=== PATIENT | male | born 1955 | race Caucasian/White ===

== ENCOUNTER 2022-03-14 00:52 | Inpatient (IN) ==
[2022-03-14 02:53] LABS: Basophils % 0.3 %; Eosinophils % 0.1 %; Mean Corpuscular Hemoglobin 28.7 pg (28.0-33.3); Red Cell Distribution Width 14.6 % (11.5-14.5)
[2022-03-14 02:55] LABS: Basophils # 0.1 K/mcL (0.0-0.2); Hematocrit 15.8 % (37.5-50.1); Immature Granulocytes % 1.9 % (0-4); Lymphocytes # 1.8 K/mcL (0.6-4.6); Lymphocytes % 10.9 %; Mean Corpuscular HGB Conc 32.3 g/dL (31.6-35.5); Mean Corpuscular Volume 88.8 fL (83.0-100.0); Mean Platelet Volume 9.2 fL (9.4-12.4); Monocytes # 0.6 K/mcL (0.0-1.3); Monocytes % 3.7 %; Nucleated Red Blood Cells 0.5 /100 WBC (0); Platelet Count 563 K/mcL (140-400); Red Blood Count 1.78 M/mcL (4.19-5.50); Segmented Neutrophils % 83.1 %; White Blood Count 16.3 K/mcL (4.3-11.1)
[2022-03-14 02:59] LABS: Neutrophils # 13.6 K/mcL (1.6-8.9)
[2022-03-14 03:01] LABS: Hemoglobin 5.1 g/dL (12.9-16.9)
[2022-03-14 03:11] LABS: Alanine Aminotransferase 76 Units/L (7-52); Albumin 2.6 g/dL (3.5-5.7); Alkaline Phosphatase 80 Units/L (34-104); Aspartate Amino Transferase 30 Units/L (13-39); BUN/Creatinine Ratio 44 (6-26); Bilirubin,Total 0.6 mg/dL (0.3-1.0); Blood Urea Nitrogen 30 mg/dL (8-23); Calcium 8.4 mg/dL (8.6-10.3); Carbon Dioxide 21 mEq/L (23-29); Chloride 95 mEq/L (98-107); Creatine Kinase 67 Units/L (30-223); Globulin 2.7 g/dL (2.4-3.5); Glucose 430 mg/dL (70-105); Magnesium 2.3 mg/dL (1.6-2.6); Osmolality,Calculated 287 (280-300); Potassium 4.8 mEq/L (3.5-5.1); Sodium 126 mEq/L (136-145); Total Protein 5.3 g/dL (6.4-8.9); Troponin I 0.11 ng/mL (< 0.04)
[2022-03-14 03:13] LABS: Thyroid Stimulating Hormone 1.006 mcIU/mL (0.340-5.600)
[2022-03-14] MEDS ORDERED: Iopamidol - 370 500 ML MLS IVP ONE (03:22)
[2022-03-14 03:36] LABS: Hypochromasia Present (Not Present)
[2022-03-14 03:59] LABS: Immature Reticulocyte % 52.4 % (11.0-38.0); Retculocyte # 0.08 M/mcL (0.05-0.10); Reticulocyte % 4.7 % (1.6-2.8)
[2022-03-14 04:11] LABS: % Iron Saturation 36 % (20-55); Iron 66 mcg/dL (65-175); Transferrin 130 mg/dL (203-362)
[2022-03-14] MEDS ORDERED: Insulin Human Regular 10 UNIT in 0.9 % Sodium Chloride 10 ML IV ONE (04:25)
[2022-03-14 04:28] LABS: Ferritin 609 ng/mL (20-250)
[2022-03-14] MEDS ORDERED: 0.9 % Sodium Chloride 500 ML ONE (05:08)
[2022-03-14] MEDS ORDERED: Naloxone 0.4 MG/ML INJ IVP PRN (08:00)
[2022-03-14] MEDS ORDERED: Ondansetron 4 MG/2 ML VIAL IVP PRN (08:00)
[2022-03-14] MEDS ORDERED: Acetaminophen 325 MG TABLET PO PRN (08:00)
[2022-03-14] MEDS ORDERED: D5% in Water 1,000 ML IVC PRN (08:08)
[2022-03-14] MEDS ORDERED: Dextrose Gel 15 GM/37.5 ML TUBE PO PRN ×2 (08:08)
[2022-03-14] MEDS ORDERED: *HR* Dextrose 50 % in Water (Syg) 50 ML SYRINGE IVP PRN (08:08)
[2022-03-14 11:45] LABS: Hematocrit 25.1 % (37.5-50.1); Hemoglobin 8.4 g/dL (12.9-16.9)
[2022-03-14] MEDS: Pantoprazole 40 MG VIAL IVP SCH ×2 (13:23→20:37)
[2022-03-14] MEDS: Insulin LISPRO 300 UNITS/3 ML VIAL SUBQ SCH ×3 (13:23→20:53)
[2022-03-14] MEDS: carvediloL 6.25 MG TABLET PO SCH (20:38)
[2022-03-14] MEDS: *HR* HYDROcodone/Acet 5/325 mg TABLET PO PRN (20:47)
[2022-03-15 03:44] LABS: Hematocrit 22.4 % (37.5-50.1); Hemoglobin 7.4 g/dL (12.9-16.9); Mean Corpuscular Hemoglobin 29.4 pg (28.0-33.3); Mean Corpuscular Volume 88.9 fL (83.0-100.0); Mean Platelet Volume 8.8 fL (9.4-12.4); Platelet Count 431 K/mcL (140-400); Red Blood Count 2.52 M/mcL (4.19-5.50); Red Cell Distribution Width 14.8 % (11.5-14.5); White Blood Count 15.7 K/mcL (4.3-11.1)
[2022-03-15 03:59] LABS: BUN/Creatinine Ratio 29 (6-26); Blood Urea Nitrogen 17 mg/dL (8-23); Calcium 8.5 mg/dL (8.6-10.3); Carbon Dioxide 24 mEq/L (23-29); Chloride 98 mEq/L (98-107); Glucose 213 mg/dL (70-105); Lactate Dehydrogenase 177 Units/L (140-271); Magnesium 2.1 mg/dL (1.6-2.6); Osmolality,Calculated 276 (280-300); Potassium 3.9 mEq/L (3.5-5.1); Sodium 129 mEq/L (136-145)
[2022-03-15 04:07] LABS: Estimated Average Glucose 243 mg/dl; Hemoglobin A1C 10.1 %
[2022-03-15] MEDS: Pantoprazole 40 MG VIAL IVP SCH (05:29)
[2022-03-15] MEDS: Aspirin Enteric Coated 81 MG Tablet PO SCH (12:55)
[2022-03-15] MEDS: carvediloL 6.25 MG TABLET PO SCH ×2 (12:56→16:37)
[2022-03-15] MEDS ORDERED: Lidocaine -MPF 2% 2 ML VIAL ONE (13:13)
[2022-03-15] MEDS ORDERED: Acetaminophen 325 MG TABLET PO PRN (15:51)
[2022-03-15] MEDS: Insulin LISPRO 300 UNITS/3 ML VIAL SUBQ SCH ×4 (16:27→21:00)
[2022-03-15] MEDS: Fluconazole 100 MG TABLET PO SCH (16:38)
[2022-03-15 16:46] LABS: Hematocrit 27.8 % (37.5-50.1); Hemoglobin 8.9 g/dL (12.9-16.9)
[2022-03-15] MEDS: *HR* HYDROcodone/Acet 5/325 mg TABLET PO PRN (20:59)
[2022-03-15] MEDS: Insulin DETEMIR 100 UNIT/ML X5UNITS SUBQ SCH (21:00)
[2022-03-16] MEDS: carvediloL 6.25 MG TABLET PO SCH ×2 (08:54→18:43)
[2022-03-16] MEDS: Fluconazole 100 MG TABLET PO SCH (08:54)
[2022-03-16] MEDS: Aspirin Enteric Coated 81 MG Tablet PO SCH (08:54)
[2022-03-16] MEDS: Insulin LISPRO 300 UNITS/3 ML VIAL SUBQ SCH ×4 (08:54→20:56)
[2022-03-16] MEDS: *HR* HYDROcodone/Acet 5/325 mg TABLET PO PRN ×2 (09:03→20:55)
[2022-03-16 10:32] LABS: Basophils # 0.1 K/mcL (0.0-0.2); Basophils % 0.4 %; Eosinophils # 0.1 K/mcL (0.0-0.6); Eosinophils % 0.6 %; Immature Granulocytes % 1.5 % (0-4); Lymphocytes # 1.5 K/mcL (0.6-4.6); Lymphocytes % 12.1 %; Mean Corpuscular HGB Conc 32.7 g/dL (31.6-35.5); Mean Corpuscular Volume 91.7 fL (83.0-100.0); Mean Platelet Volume 8.8 fL (9.4-12.4); Monocytes # 0.6 K/mcL (0.0-1.3); Monocytes % 4.8 %; Neutrophils # 9.8 K/mcL (1.6-8.9); Nucleated Red Blood Cells 0.2 /100 WBC (0); Platelet Count 420 K/mcL (140-400); Red Cell Distribution Width 16.6 % (11.5-14.5); Segmented Neutrophils % 80.6 %; White Blood Count 12.2 K/mcL (4.3-11.1)
[2022-03-16 10:33] LABS: Hemoglobin 7.2 g/dL (12.9-16.9)
[2022-03-16 10:54] LABS: BUN/Creatinine Ratio 19 (6-26); Blood Urea Nitrogen 15 mg/dL (8-23); Carbon Dioxide 22 mEq/L (23-29); Chloride 97 mEq/L (98-107); Glucose 367 mg/dL (70-105); Osmolality,Calculated 280 (280-300); Potassium 4.4 mEq/L (3.5-5.1); Sodium 127 mEq/L (136-145)
[2022-03-16 14:22] LABS: Hematocrit 21.6 % (37.5-50.1); Hemoglobin 7.2 g/dL (12.9-16.9)
[2022-03-16] MEDS ORDERED: 0.9 % Sodium Chloride 250 ML IVC SCH (17:00)
[2022-03-16] MEDS: Insulin DETEMIR 100 UNIT/ML X5UNITS SUBQ SCH (20:56)
[2022-03-16 21:15] LABS: Bilirubin,Urine Negative (Negative); Blood,Urine Negative (Negative); Clarity,Urine Clear (Clear); Color,Urine Yellow (Yellow); Glucose,Urine (UA) >=1000 mg/dL (Normal); Ketones,Urine Negative (Negative); Leukocyte Esterase,Urine Negative (Negative); Mucus,Urine Few per lpf (None-Few); Nitrite,Urine Negative (Negative); Protein,Urine Trace mg/dL (Neg-Trace); RBC,Urine 0-3 per hpf (0-3); Specific Gravity,Urine > 1.030 (1.010-1.025); WBC,Urine 0-3 per hpf (0-3)
[2022-03-16 22:37] LABS: Hematocrit 25.5 % (37.5-50.1); Hemoglobin 8.3 g/dL (12.9-16.9)
[2022-03-17 04:28] LABS: Basophils # 0.1 K/mcL (0.0-0.2); Basophils % 0.7 %; Eosinophils # 0.2 K/mcL (0.0-0.6); Eosinophils % 1.8 %; Hematocrit 27.8 % (37.5-50.1); Hemoglobin 9.1 g/dL (12.9-16.9); Immature Granulocytes % 2.1 % (0-4); Lymphocytes % 17.4 %; Mean Corpuscular HGB Conc 32.7 g/dL (31.6-35.5); Mean Corpuscular Hemoglobin 29.5 pg (28.0-33.3); Mean Corpuscular Volume 90.3 fL (83.0-100.0); Mean Platelet Volume 8.8 fL (9.4-12.4); Monocytes # 0.8 K/mcL (0.0-1.3); Monocytes % 6.6 %; Neutrophils # 8.3 K/mcL (1.6-8.9); Nucleated Red Blood Cells 0.5 /100 WBC (0); Platelet Count 375 K/mcL (140-400); Red Blood Count 3.08 M/mcL (4.19-5.50); Red Cell Distribution Width 17.7 % (11.5-14.5); Segmented Neutrophils % 71.4 %; White Blood Count 11.7 K/mcL (4.3-11.1)
[2022-03-17 04:43] LABS: BUN/Creatinine Ratio 19 (6-26); Blood Urea Nitrogen 13 mg/dL (8-23); Calcium 8.2 mg/dL (8.6-10.3); Carbon Dioxide 24 mEq/L (23-29); Chloride 100 mEq/L (98-107); Glucose 141 mg/dL (70-105); Osmolality,Calculated 274 (280-300); Potassium 3.8 mEq/L (3.5-5.1); Sodium 131 mEq/L (136-145)
[2022-03-17] MEDS: Insulin LISPRO 300 UNITS/3 ML VIAL SUBQ SCH ×4 (08:07→20:54)
[2022-03-17] MEDS: Fluconazole 100 MG TABLET PO SCH (08:13)
[2022-03-17] MEDS: carvediloL 6.25 MG TABLET PO SCH ×2 (08:14→17:21)
[2022-03-17] MEDS: Aspirin Enteric Coated 81 MG Tablet PO SCH (08:14)
[2022-03-17] MEDS: *HR* HYDROcodone/Acet 5/325 mg TABLET PO PRN (10:39)
[2022-03-17] MEDS ORDERED: Insulin DETEMIR 100 UNIT/ML X5UNITS SUBQ SCH (21:00)
[2022-03-18] MEDS: *HR* HYDROcodone/Acet 5/325 mg TABLET PO PRN (02:52)
[2022-03-18 04:40] LABS: Basophils # 0.1 K/mcL (0.0-0.2); Basophils % 0.6 %; Eosinophils # 0.2 K/mcL (0.0-0.6); Eosinophils % 1.4 %; Hematocrit 27.6 % (37.5-50.1); Immature Granulocytes % 1.2 % (0-4); Lymphocytes # 1.5 K/mcL (0.6-4.6); Lymphocytes % 12.9 %; Mean Corpuscular HGB Conc 32.6 g/dL (31.6-35.5); Mean Corpuscular Hemoglobin 29.4 pg (28.0-33.3); Mean Corpuscular Volume 90.2 fL (83.0-100.0); Mean Platelet Volume 8.9 fL (9.4-12.4); Monocytes # 0.6 K/mcL (0.0-1.3); Monocytes % 4.9 %; Neutrophils # 9.1 K/mcL (1.6-8.9); Nucleated Red Blood Cells 0.2 /100 WBC (0); Platelet Count 370 K/mcL (140-400); Red Blood Count 3.06 M/mcL (4.19-5.50); White Blood Count 11.5 K/mcL (4.3-11.1)
[2022-03-18 05:04] LABS: BUN/Creatinine Ratio 21 (6-26); Blood Urea Nitrogen 12 mg/dL (8-23); Calcium 8.1 mg/dL (8.6-10.3); Carbon Dioxide 23 mEq/L (23-29); Chloride 100 mEq/L (98-107); Glucose 263 mg/dL (70-105); Osmolality,Calculated 281 (280-300); Potassium 3.9 mEq/L (3.5-5.1); Sodium 131 mEq/L (136-145)
[2022-03-18] MEDS: carvediloL 6.25 MG TABLET PO SCH (07:49)
[2022-03-18] MEDS: Fluconazole 100 MG TABLET PO SCH (07:49)
[2022-03-18] MEDS: Insulin LISPRO 300 UNITS/3 ML VIAL SUBQ SCH ×2 (07:50→11:41)
[2022-03-18] MEDS: Aspirin Enteric Coated 81 MG Tablet PO SCH (07:50)
[2022-03-18 07:52] VITALS: O2SAT 98
[2022-03-18 11:28] VITALS: BP 144/62; PULSE 86; TEMP 97.8
[2022-03-18 12:39] LABS: Influenza A PCR Negative (Negative); Influenza B PCR Negative (Negative); Resp. Syncytial Virus PCR Negative (Negative)
[2022-03-18 12:44] LABS: SARS-CoV-2 by PCR (In House) Negative (Negative)
== END 2022-03-18 14:00 | DRG 377 ==
LOC: EMEROOARM 00:52 → SUATTDRO 08:25 → 2NENU 08:25
PROVIDERS: ADMIT Internal Medicine; ATTEND Internal Medicine
PROC: ENDOEBX (2022-03-15 14:35)